=== PATIENT | female | born 2000 | race Two or more races ===

== ENCOUNTER 2022-02-04 12:30 | Emergency (ER) | payer MEDICAID, OTHER ==
[~2022-02-04] VITALS: Ht 154.9 cm; Wt 72.6 kg
[2022-02-04] MEDS ORDERED: IBUP-1957 PO (14:14)
--- NOTE | 2022-02-04 15:51 | NUR ---
SEEN AND EVALUATED BY DR ALONSO, DISCHARGE IN STABLE CONDITION.
[2022-02-04 15:52] VITALS: BP 135/84
== END 2022-02-04 15:53 | disposition home or self-care (01) ==
LOC: ER 12:48
DX: R07.89 Other chest pain (principal); F41.9 Anxiety disorder, unspecified
CPT/HCPCS: 71045-TC; 84703-TC